=== PATIENT | male | born 1930 | race Caucasian/White ===

== ENCOUNTER 2016-03-29 11:00 | Outpatient (RCR) | payer MEDICARE, BC, OTHER ==
[~2016-03-29 11:00] MED LIST: /PANT40TA; ACET65TA; AMLO10TAB; COQ-10; COZA50TA18; ECOT325T5; LOPR50TA; MAALSUS; NITR0.4S; OMEGA FISH OIL; VITAMIN D50000 UNT; ZOCO20TA
== END 2016-04-05 ==
LOC: M ST 11:00
PROVIDERS: ATTEND Otolaryngology
DX: Z51.89 Encounter for other specified aftercare (principal); Z93.0 Tracheostomy status; Z43.0 Encounter for attention to tracheostomy

== ENCOUNTER 2016-08-12 15:30 | Emergency (ER) | payer MEDICARE, BC, OTHER ==
[2016-08-12] MEDS ORDERED: HEPARIN 25,000 UNITS/250 ML D5W BAG (100 UNITS/ML) ONE (15:31)
[2016-08-12] MEDS ORDERED: HEPARIN SOD (PORCINE) 5000 UNITS/ML VIAL ONE (15:31)
[2016-08-12] MEDS ORDERED: TENECTEPLASE 50 MG KIT (TNKase)(J3101) ONE (15:31)
[2016-08-12] MEDS ORDERED: EPINEPHrine 1MG/10ML SYRINGE 1.5IN ONE (15:31)
== END 2016-08-12 17:18 | disposition expired ==
LOC: EDBD 15:30 → M ED 15:30
DX: I46.9 Cardiac arrest, cause unspecified (principal)
CPT/HCPCS: 92950; 96374; 96375; 99285; J3101